=== PATIENT | female | born 1975 | race Two or more races ===

== ENCOUNTER 2025-01-29 14:47 | Emergency (ER) | payer BC, MEDICAID, SELFPAY ==
[2025-01-29 14:48] VITALS: BMI 27.4
[2025-01-29 14:58] VITALS: BP 161/92; PULSE 77; RESP 18; TEMP 36.6; O2SAT 98
[2025-01-29] MEDS: DEXAMETHASONE SOD PHOS INJ 10 MG/ML VIAL PO (15:53)
[2025-01-29] MEDS: KETOROLAC INJ 30 MG/ML VIAL IM (15:53)
--- NOTE | 2025-01-29 16:58 | EDNOTE_ITS ---
Upper Extremity Injury RME/HPI General Stated Complaint: right arm numbness no injury Time Seen by Provider: 01/29/25 15:04 Arrival date/time: 01/29/25 14:47 49-year-old female presents to the emergency room due to complaints of neck pain radiating down the right arm patient reports pain is worse with movement of the neck ongoing x 1 day patient worse no headache or dizziness Limitations: no limitations Related Data Home Medications ?Medication ?Instructions ?Recorded ?Confirmed metoprolol succinate 25 mg 25 mg PO DAILY PRN Blood Pr essure 08/18/20 08/18/20 tablet,extended release 24 hr Previous Rx's ?Medication ?Instructions ?Recorded ibuprofen 600 mg tablet 600 mg PO Q8H PRN pain #30 t abs 08/18/20 hydrocodone 5 mg-acetaminophen 325 1 tab PO BID PRN pa in #8 tabs 07/03/22 mg tablet ibuprofen 600 mg tablet 600 mg PO Q6H #30 tabs 07/03 ofloxacin 0.3 % eye drops (Ocuflox) See Rx Instruction s ophthalmic 08/12/23 (eye) .COMPLEX #30 mL ofloxacin 0.3 % eye drops (Ocuflox) See Rx Instruction s ophthalmic 08/12/23 (eye) .COMPLEX #30 mL diazepam 10 mg tablet (Valium) 10 mg PO BID PRN muscle spasm #10 01/29/25 tabs Allergies Allergy/AdvReac Type Severity Reaction Status Date / Time ERYTHROMYCIN (Generic Allergy Intermediate Rash Uncoded 08/18/20 12:33 Allergy) Review of Systems Review of Systems Systems Reviewed: All systems reviewed, normal except as documented Constitutional Constitutional: Reports system reviewed and no additional complaints, except as documented, Denies fever(s) and Denies headache(s) Eyes Eyes: Reports system reviewed and no additional complaints, except as documented and Denies blurry vision ENT Ears, Nose, Mouth, and Throat: Reports system reviewed and no additional complaints, except as documented, Denies headache(s), Denies nasal congestion and Denies nasal discharge Cardiovascular Cardiovascular: Reports system reviewed and no additional complaints, except as documented, Denies chest pain and Denies dyspnea Respiratory Respiratory: Reports system reviewed and no additional complaints, except as documented, Denies chest congestion, Denies cough and Denies dyspnea Gastrointestinal Gastrointestinal: Reports system reviewed and no additional complaints, except as documented and Denies abdominal pain Musculoskeletal Musculoskeletal: Reports system reviewed and no additional complaints, except as documented, Denies deformity, Denies numbness, Reports stiffness and Denies tingling Integumentary/Breasts Skin/Breast: Reports system reviewed and no additional complaints, except as documented and Denies rash Neurologic Neurologic: Reports system reviewed and no additional complaints, except as documented, Reports as per HPI, Denies headache(s), Denies numbness and Denies tingling Past Medical History Past Medical History NEUROLOGIC: Negative Neurological Disorders or Seizures CARDIAC: Positive Cardiac Disorders and Hypertension (takes metoprolol PRN); Negative Congestive Heart Failure RESPIRATORY: Negative Chronic Obstructive Pulmonary Disease (COPD) GASTROINTESTINAL: Negative Gastrointestinal Disorders GENITOURINARY: Negative Genitourinary Disorders or Renal Disease REPRODUCTIVE: Positive Previous Pregnancies MUSCULOSKELETAL: Negative Musculoskeletal Disorders ENDOCRINE: Negative Endocrine Disorders, Diabetes Mellitus Type 1 or Diabetes Mellitus Type 2 HEMATOLOGIC: Negative Blood Disorders OTHER HISTORY: Negative Hospitalization, Shingles, Falls, Blood Transfusions, Blood Transfusion Reaction, Anesthesia Reactions, MRSA or Cancer Family History FAMILY HISTORY: Positive Family Surgery; Negative Family Anesthesia Reaction Social History SMOKING STATUS: Never smoker ED Exam General Limitations: Present no limitations General appearance: Present alert and in no apparent distress Head Head exam: Present atraumatic Eye Eye exam: Present normal appearance, PERRL and EOMI ENT ENT exam: Present normal exam, normal oropharynx and mucous membranes moist Neck Neck exam: Present normal inspection, full ROM, trachea midline and tenderness Chest Chest inspection: Present normal inspection and symmetric chest wall rise Respiratory Respiratory exam: Present normal lung sounds bilaterally Cardiovascular Cardiovascular exam: Present regular rate, normal rhythm and normal heart sounds Abdominal Exam Abdominal exam: Present soft and normal bowel sounds Extremities Exam Extremities exam: Present normal inspection and full ROM Back Exam Back exam: Present normal inspection and full ROM Neurological Exam Neurological exam: Present alert, oriented X3 and CN II-XII intact Psychiatric Psychiatric exam: Present normal affect and normal mood Skin Skin exam: Present warm, dry, intact and normal color Course Quality Measures none Orders Category Date Time Status Dexamethasone Inj [Decadron Inj] Med 01/29/25 15:10 Discontinued 10 mg PO X1 ONE Ketorolac Inj [Toradol Inj] Med 01/29/25 15:10 Discontinued 30 mg IM X1 ONE Vital Signs Vital signs: Vital Signs Temperature 97.9 F 01/29/25 14:58 Pulse Rate 77 01/29/25 14:58 Respiratory Rate 18 01/29/25 14:58 Blood Pressure 161/92 H 01/29/25 14:58 Pulse Oximetry (%) 98 01/29/25 14:58 Oxygen Delivery Method Room Air 01/29/25 14:58 O2 saturation 98% room air within normal limits Extremity Injury MDM Narrative MDM Narrative:: 49-year-old female presents to the emergency room due to complaints of neck pain radiating down the right arm patient reports pain is worse with movement of the neck ongoing x 1 day patient worse no headache or dizziness On exam patient well-appearing patient does not appear ill or toxic in no acute distress Patient does have pain with movement of the neck consistent with muscle spasm, torticollis Patient discharged home in no distress to follow-up with primary care doctor in the next 24 to 48 hours and for any worsening symptoms to return to the ER immediately Patient data External records reviewed:: [facility] previous records Clinical information provided by:: patient Social determinants that could affect healthcare access:: none Patient has the following chronic illnesses:: None How is presenting disease/condition affected by chronic disease/condition?: no chronic disease Evaluation data The following diagnostics were reviewed and interpreted by me:: radiology exam(s) Lab and/or radiology exams considered but not ordered:: Allergy obtained Interpretation Summary: Given Medications / Prescriptions Medications or Prescriptions considered but not ordered:: Given Medication administrations:: Medication Administration History Discontinued Medications Dexamethasone Sodium Phosphate (Dexamethasone Sod Phos Inj 10 Mg/Ml Vial) 10 mg PO X1 ONE Stop: 01/29/25 15:11 Last Admin: 01/29/25 15:53 Dose: 10 mg Documented By: Ketorolac Tromethamine (Ketorolac Inj 30 Mg/Ml Vial) 30 mg IM X1 ONE Stop: 01/29/25 15:11 Last Admin: 01/29/25 15:53 Dose: 30 mg Documented By: Given Consultations Consultation(s) initiated? (list below): No Diagnosis Upper Extremity Injury Differential Diagnosis: other (Torticollis, neck sprain) Most likely diagnosis given after review of the tests above:: Torticollis Admission Indicated Admission indicated?: not indicated Admission Request Was there a request for admission?: No Disposition Plan Disposition Plan: Discharge Discharge Attestation Discharge Attestation: The patient and all family members were given an opportunity to ask questions and understood the discharge instructions. Discharge instructions specifically effects, indications for sooner follow up or return to the emergency department, and the expected course of current diagnosis. Patient condition: Stable Discharge Plan Plan Patient Disposition: HOME (Self Care) Discharge Disposition comment: Stable Prescriptions/Referrals Prescriptions/Med Rec: New diazepam [Valium] 10 mg tablet 10 mg PO BID PRN (Reason: muscle spasm) Qty: 10 0RF No Action metoprolol succinate 25 mg Tablet Extended Release 24 Hr 25 mg PO DAILY PRN (Reason: Blood Pressure) ibuprofen 600 mg tablet 600 mg PO Q8H PRN (Reason: pain) Qty: 30 0RF hydrocodone-acetaminophen 5-325 mg tablet 1 tab PO BID MDD 10 PRN (Reason: pain) Qty: 8 0RF ibuprofen 600 mg tablet 600 mg PO Q6H Qty: 30 0RF ofloxacin [Ocuflox] 0.3 % drops See Rx Instructions ophthalmic (eye) .COMPLEX Qty: 30 1RF Rx Instructions: 2GTT into affected eye every 30min for the first 2days while awake, followed by 2GTT every 1hr while awake x 4days, then2 GTT 4 times/day until cured ofloxacin [Ocuflox] 0.3 % drops See Rx Instructions ophthalmic (eye) .COMPLEX Qty: 30 0RF Rx Instructions: 2GTT to right eye q 30min x 2days while awake, then 2GTT every 1hr while awake x 4days, then2 GTT 4 times/day until cured Problem List Clinical Impression: Neck pain, Muscle strain Patient/Caregiver Discharge Instructions Education Materials: ED Back Care Tips Additional Instructions: Please follow up with your primary care doctor in the next 24-48hrs for any worsening symptoms return here immediately Print Language: Albanian Stand Alone Forms: Anali Award Info., Work/School Release, Patient Portal Info Letter PA/OPERATIONAL REVIEW SERGEANT Supervising Physician PA/OPERATIONAL REVIEW SERGEANT Supervising Physician: Dr gonzalez
== END 2025-01-29 16:05 | disposition home or self-care (01) ==
PROVIDERS: Emergency Provider Family Medicine
DX: S16.1XXA Strain of muscle, fascia and tendon at neck level, initial encounter (principal); X50.0XXA Overexertion from strenuous movement or load, initial encounter
CPT/HCPCS: 96372; 99283; J1100; J1885

== ENCOUNTER → 2025-02-12 | Outpatient (CLI) | payer BC, MEDICAID, SELFPAY ==
--- NOTE | 2025-02-12 09:00 | XR_ITS ---
EXAMINATION: Cervical spine, 5 views Technique: Cervical spine AP, AP odontoid, lateral, bilateral obliques, 5 views Exam date and time: 02/12/2025 at 9:15 a.m. INDICATION: Neck pain for 3 weeks Comparison none: Findings: Straightening of the normal cervical lordosis could be due to patient's positioning or potentially paravertebral muscle spasm. Otherwise, normal-appearing cervical vertebral bodies. No fracture or aggressive bone lesions. No listhesis or prevertebral soft tissue swelling. The intervertebral disc spaces are well-maintained. The facet joints appear intact and unremarkable. The bowel and bony neuroforamina are widely patent. Incidentally noted is that the maxilla and mandible are edentulous. IMPRESSION: Negative cervical spine radiographs for fracture, listhesis, significant spondylosis or disc space narrowing. No prevertebral soft tissue swelling.
--- NOTE | 2025-02-12 09:00 | XR_ITS ---
Examination: Shoulder, right, 3 views Technique: Shoulder AP internal rotation, AP external rotation, Y view shoulder, 3 views Exam date and time : 02/12/2025, 9:36 a.m. INDICATION: Right shoulder area pain for 3 weeks. COMPARISON: Right humerus radiographs 11/05/2006 FINDINGS: The right glenohumeral and acromioclavicular joints appear intact and unremarkable. No acute fracture or dislocation. No significant degenerative changes. Intact internal-external rotation of the humerus. No apparent soft tissue swelling or gas. The visualized rib cage and vertebra are intact and unremarkable. The visualized lungs are clear. IMPRESSION: Normal right shoulder radiographs. No acute osseous abnormality or apparent significant degenerative change.
== END | disposition home or self-care (01) ==
PROVIDERS: PCP Family Medicine; Referring Provider Family Medicine; Visit Provider Family Medicine
DX: M54.2 Cervicalgia (principal); M25.511 Pain in right shoulder
CPT/HCPCS: 72050; 73030